=== PATIENT | female | born 1985 | race African-American/Black ===

== ENCOUNTER 2021-12-28 14:27 | Emergency (ER) | payer SELFPAY ==
[~2021-12-28] VITALS: Ht 149.9 cm; Wt 86.3 kg
[2021-12-28 14:35] VITALS: BP 140/88
--- NOTE | 2021-12-28 16:38 | RAD ---
STUDY: CT head without contrast INDICATION: Enlarged sella turcica. COMPARISON: None. TECHNIQUE: Axial CT imaging through the head without the use of intravenous contrast. Sagittal and co tello reformats were obtained. One or more of the following individualized dose reduction techniques were utilized for this examinat ion: 1. Automated exposure control 2. Adjustment of the mA and/or kV according to patient size 3. Use of iterative reconstruction technique. FINDINGS: Smooth expansion of the sella turcica with the contents of the sella hypoattenuating. The pituitary i tself is difficult to visualize. No solid mass at the sella turcica or suprasellar cistern. No acute intracranial hemorrhage. Valles-white matter differentiation is maintained. No mass effect, mi dline shift or hydrocephalus. The partially imaged orbits are unremarkable. Intact calvarium. IMPRESSION: Smooth/chronic expansion of the sella with the sellar contents measuring fluid density and the pituit cali difficult to visualize. Nonemergent MRI pituitary protocol would allow for differentiation betwee n an empty sella and a cystic abnormality expanding the sella. No soft tissue mass within the sella o r suprasellar cistern. Electronically signed by: CONCEPCION COVINGTON MD (12/28/2021 4:35 PM) [facility]
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
== END 2021-12-28 17:04 | disposition home or self-care (01) ==
LOC: ER 14:27
DX: E23.6 Other disorders of pituitary gland (principal); R51.9 Headache, unspecified; Z88.1 Allergy status to other antibiotic agents; Z91.041 Radiographic dye allergy status; Z88.8 Allergy status to other drugs, medicaments and biological substances
CPT/HCPCS: 70450; 81025; 99284-25